=== PATIENT | female | born 1995 | race Caucasian/White ===

== ENCOUNTER → 2021-10-30 | Outpatient (CLI) | payer OTHER ==
[~2021-10-30] MED LIST: ADIPEX-P37.5 M1 PO; COLACE 100MG C100 MG PO; HYDROCODON-ACE1 EAC6 PO; IBUPROFEN600 MG PO; JENCYCLA0.35 MG PO; PROAIR HFA8.5 GM INH; PROZAC10 MG PO; VITAMIN D21250 MCG PO
[2021-10-30 10:30] LABS: RED BLOOD COUNT 4.66 M/UL (4.00-5.10); WHITE BLOOD COUNT 8.1 K/UL (4.5-11.0)
== END ==
LOC: OPSV2 09:00
PROVIDERS: Obstetrics & Gynecology
DX: Z01.812 Encounter for preprocedural laboratory examination (principal); R10.2 Pelvic and perineal pain
CPT/HCPCS: 36415; 81001; 85025

== ENCOUNTER → 2021-11-01 | Day surgery (SDC) | payer OTHER | END | disposition home or self-care (01) | LOC: OR 06:38 | DX: N93.9 Abnormal uterine and vaginal bleeding, unspecified (principal); N94.6 Dysmenorrhea, unspecified; R10.2 Pelvic and perineal pain; N92.6 Irregular menstruation, unspecified; J45.909 Unspecified asthma, uncomplicated; E66.01 Morbid (severe) obesity due to excess calories; F41.9 Anxiety disorder, unspecified; F32.A Depression, unspecified; Z68.33 Body mass index [BMI] 33.0-33.9, adult; Z87.42 Personal history of other diseases of the female genital tract; Z79.899 Other long term (current) drug therapy | CPT/HCPCS: 36415; 84702; J1100; J1580; J1885; J2001; J2250; J2370; J2405; J2704; J2795; J3010 ==